=== PATIENT | male | born 1960 | race Caucasian/White ===

== ENCOUNTER → 2018-10-09 | Day surgery (SDC) | payer OTHER ==
[~2018-10-09] MED LIST: ATROPINE SULFATE 1 MG/ML VIAL ONE; DEXAMETHASONE SOD PHOS INJ 4 MG/ML VIAL ONE; FENTANYL CITRATE/PF 100MCG/2 ML INJ ONE; KETOROLAC TROMETHAMINE 30 MG/ML VIAL ONE; LIDOCAINE 2% /EPINEPHRINE 20 ML SDV INJ ONE; LIDOCAINE HCL 2% LOCAL INJ 5 ML SDV VIAL INJ ONE; MEPERIDINE HCL INJ 25 MG/ML VIAL ONE; MIDAZOLAM HCL 2 MG/2 ML VIAL ONE; NEOSTIGMINE 5 MG/5ML SYR ONE; ONDANSETRON HCL INJ 2MG/ML 2ML 2 MG/ML VIAL ONE; PROMETHAZINE HCL (IM) 25 MG/ML VIAL ONE; PROPOFOL IV EMULSION 10 MG/ML 20 ML VIAL ONE; ROCURONIUM BROMIDE 10 MG/ML 5ML VIAL ONE; SEVOFLURANE INHAL SOLN 250 ML PEN BTL ONE
--- OUTSIDE RECORDS SUMMARY | 2018-10-09 08:36 | XMS REPORT | Clinical Summary ---
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 Encounters Care Team Description Date Type Specialty Nick Aguilar MD Mandibular mass (Primary Dx) 09/19/2018 Office Visit General Surgery after 10/08/2017 Family History Medical History Relation Name Comments Hypertension Brother Diabetes Father Heart disease Father Diabetes Mother Heart disease Mother Relation Name Status Comments Brother Father Mother Social History Date Tobacco Use Types Packs/Day Years Used Never Smoker Smokeless Tobacco: Never Used Tobacco Cessation: Counseling Given: No Alcohol Use Drinks/Week oz/Week Comments Yes rarely Sex Assigned at Date Recorded Not on file Industry Job Start Date Occupation Not on file Not on file Not on file Travel End Travel History Travel Start No recent travel history available. Last Filed Vital Signs Time Taken Vital Sign Reading 09/19/2018 2:44 PM CDT Blood Pressure 127/78 09/19/2018 2:44 PM CDT Pulse 60 09/19/2018 2:44 PM CDT Temperature 36.8 C (98.2 F) - Respiratory Rate - - Oxygen Saturation - - Inhaled Oxygen - Concentration 09/19/2018 2:44 PM CDT Weight 101 kg (222 lb) 09/19/2018 2:44 PM CDT Height 182.9 cm (6') 09/19/2018 2:44 PM CDT Body Mass Index 30.11 Plan of Treatment Health Maintenance Due Date Last Done Comments COLONOSCOPY SCREENING 2010 SHINGLES VACCINES (#1) 2010 INFLUENZA VACCINE 10/04/2018 Results Not on fileafter 10/08/2017 Insurance Type Payer Benefit Subscriber ID Effective Phone Address Plan / Dates Group PPO AETNA AETNA xxxxxxxxxx [id number] [facility] PPO Advance Directives Patient has advance care planning documents on file. For more information, gigi thornton contact: Junaid Linton [address] [place] [address]
[2018-10-09 13:15] VITALS: BP 128/82
--- NOTE | 2018-10-09 14:10 | Operative Report ---
DATE OF PROCEDURE: 10/09/2018 SURGEON: Stanford Patel MD CHIEF COMPLAINT: Left jugulodigastric mass. POSTOPERATIVE DIAGNOSES: 1. Left jugulodigastric mass. 2. Lipoma in the left jugulodigastric area. OPERATIVE PROCEDURE: Excision of left neck mass with appropriate closure. ANESTHESIA: Dr. Kolb. INDICATIONS: This 57 years old male was told to have a lesion in the left jugulodigastric area for number of years. The lesion has been increasing in size and irritating. The patient has a history of lipoma. Generally, history of lipoma in his leg that was removed by general surgeon previously. On examination, the lesion is noted at the angle of the mandible about 2 x [address] scan of the neck showed that the lesion is a lipoma, superficial to the parotid gland. It was decided excision of the lesion with appropriate closure and other necessary procedure will be beneficial for him. DESCRIPTION OF PROCEDURE: The patient was taken to the operating room, put under general anesthesia, endotracheally intubated. The neck was prepped and draped in a sterile fashion. An incision was marked out about 2 fingerbreadths from the margin of the mandible. The area was injected with 2% xylocaine with 1:100,000 epinephrine for hemostasis. Dissection was carried down to the subplatysmal plane. The dissection was carried out to the subcutaneous plane. A subcutaneous flap was elevated away from the mass, so that the mass without puncturing of the skin. After the flap was elevated, the lesion come into view. The lesion was noted to be superficial to the SMAS layer. With some counter retraction, the lesion was dissected from the surrounding soft tissue and dissected off and sent for permanent section. The SMAS layer was not disturbed. Closure of the area was undertaken, where the area was irrigated with copious amount of normal saline. Any bleeding area was controlled using the bipolar cautery. The deep layer of the incision was closed using 3-0 Vicryl suture in an interrupted fashion. The superficial layer was closed using 4-0 Prolene suture in an interrupted fashion. At the time of the closure, it was decided that since the plane and surgical bed was quite avascular and drain would not be indicated at this point. A pressure dressing was applied. The patient tolerated the above procedure well with minimal blood loss. The patient was able to be transferred to recovery room in stable condition. MD SANFORD Verma/RAISA /[id number]
--- NOTE | 2018-10-10 04:43 | Pre Op History & Physical ---
ANTICIPATED DATE OF SURGERY: October 09, 2018. POSTOPERATIVE DIAGNOSES: Left neck mass. HISTORY OF PRESENT ILLNESS: This 57-year-old male has a lesion in the left neck in the jugulodigastric area and angle of the mandible for about two years. The patient has been followed previously by Dr. Jacobo for lipoma in his body and was sent to see Dr. Aguilar. The lesion has been increasing in size. The patient has no dysphagia, odynophagia, or shortness of breath. He has no hoarseness. The patient is a nonsmoker, nondrinker. CT scan of the neck that was done showed the patient has a 2.6 x 1.2 x 1.6 lesion in the subcutaneous area, likely a lipoma superficial on mid inferior left parotid gland. REVIEW OF SYSTEMS: System review showed no recent cardiovascular, respiratory, or GI problem. PAST MEDICAL HISTORY: The patient has a history of gastroesophageal reflux and borderline diabetes. PAST SURGICAL HISTORY: The patient has previous lipoma removed from his legs before and also left inguinal hernia repair. ALLERGIES: AMOXICILLIN GIVES HIM A RASH. MEDICATIONS: He is on no regular medication. SOCIAL HISTORY: He is a nonsmoker and nondrinker. FAMILY HISTORY: Noncontributory. PHYSICAL EXAMINATION: VITAL SIGNS: On examination, the patient's vital signs were within normal limits. HEENT: Ear exam showed normal tympanic membranes bilaterally. Nasal exam showed hypertrophy of the inferior turbinates. Oropharynx and oral cavity showed 2+ tonsils bilaterally with Mallampati level two. NECK: Showed left jugulodigastric mass 2 x 3 cm with no lymph node or thyroids palpable. CHEST: Showed good air entry bilaterally. CARDIOVASCULAR: Showed S1 and S2. No murmur noted. ASSESSMENT AND PLAN: Mr. Rosenthal has left jugulodigastric mass in the angle of the mandible. CT scan showed that this is a lipoma. Suggested treatment is excision of the lesion with appropriate closure, possible parotidectomy and other necessary procedure. The complication of procedure includes, but not limited to bleeding, infection, wound breakdown, poor cosmetic result, facial nerve injury, hypoglossal nerve injury, gustatory sweating, persistent recurrence of the lesion along with numbness secondary to injury to both the great auricular nerve. The alternative will be continued observation, needle aspiration of the area and excision of lesion in the office setting. The patient has elected to undergo the surgical procedure. MD SANFORD Verma/RAISA /[id number]
== END | disposition home or self-care (01) ==
LOC: OR 08:33
PROVIDERS: ATTEND Otolaryngology Otolaryngology/Facial Plastic Surgery
DX: D17.79 Benign lipomatous neoplasm of other sites (principal); R73.03 Prediabetes
CPT/HCPCS: 21555; 88304; 93005; J0461; J1100; J1885; J2001 ×2; J2175; J2250; J2405; J2550; J2704; J3010